=== PATIENT | female | born 1990 | race Caucasian/White ===

== ENCOUNTER 2017-03-30 16:12 | Inpatient (IN) | payer OTHER ==
[2017-03-30 18:44] LABS: ADD MAN DIFF? NO
[2017-03-30 18:47] LABS: WHITE BLOOD COUNT 8.8 10^3/ul (4.8-10.8)
[2017-03-30 18:47] LABS: BASOPHILS % 0.3 % (0.0-2.0); EOSINOPHILS # 0.3 10^3/ul (0.0-0.5); HEMATOCRIT 39.4 % (37.0-47.0); HEMOGLOBIN 12.3 g/dl (12.0-16.0); LYMPHOCYTES # 2.7 10^3/ul (0.8-2.9); LYMPHOCYTES % 30.2 % (15.0-51.0); MEAN CORPUSCULAR HEMOGLOBIN 24.8 pg (29.0-33.0); MEAN CORPUSCULAR HGB CONC 31.2 g/dl (32.0-37.0); MEAN CORPUSCULAR VOLUME 79.6 fl (82.0-101.0); MEAN PLATELET VOLUME 10.2 fl (7.4-10.4); MONOCYTE # 0.9 10^3/ul (0.3-0.9); MONOCYTES % 10.2 % (0.0-11.0); NEUTROPHIL # 4.9 10^3/ul (1.6-7.5); PLATELET COUNT 288 10^3/UL (140-415); RED BLOOD COUNT 4.95 10^6/ul (4.20-5.40); RED CELL DISTRIBUTION WIDTH 19.8 % (11.5-14.5)
[2017-03-30 18:54] LABS: ADD UMIC YES; UR ASCORBIC ACID 20 mg/dL (NEGATIVE); UR BACTERIA FEW /HPF (NONE SEEN); UR BILIRUBIN (Dip) NEGATIVE (NEGATIVE); UR BLOOD (Dip) 3+ mg/dL (NEGATIVE); UR CLARITY SLIGHTLY CLOUDY (CLEAR); UR COLOR YELLOW (YELLOW); UR GLUCOSE (Dip) NEGATIVE (NEGATIVE); UR KETONES (Dip) NEGATIVE (NEGATIVE); UR LEUKOCYTE ESTERASE (Dip) 2+ Leu/ul (NEGATIVE); UR MUCUS FEW /HPF (NONE SEEN); UR NITRITE (Dip) NEGATIVE (NEGATIVE); UR RBC 57 /HPF (0-5); UR SPECIFIC GRAVITY (Dip) 1.025 (1.003-1.030); UR SQUAMOUS EPITHELIAL CELL FEW /HPF (FEW); UR TOTAL PROTEIN (Dip) NEGATIVE (NEGATIVE); UR UROBILINOGEN (Dip) NEGATIVE (NEGATIVE); UR WBC 18 /HPF (0-5)
[2017-03-30 19:05] LABS: ALANINE AMINOTRANSFERASE 57 IU/L (13-69); ALBUMIN 4.3 g/dl (3.3-4.9); ALBUMIN/GLOBULIN RATIO 1.13; ALKALINE PHOSPHATASE 93 IU/L (42-121); ANION GAP 14 (8-16); ASPARTATE AMINO TRANSFERASE 39 IU/L (15-46); BLOOD UREA NITROGEN 11 mg/dl (7-20); CALCIUM 9.4 mg/dl (8.4-10.2); CARBON DIOXIDE 25 mmol/L (21-31); CHLORIDE 105 mmol/L (97-110); CREATININE 0.71 mg/dl (0.44-1.00); GLUCOSE 94 mg/dl (70-220); POTASSIUM 3.6 mmol/L (3.5-5.1); SODIUM 140 mmol/L (135-144); TOTAL PROTEIN 8.1 g/dl (6.1-8.1)
[2017-03-30] MEDS: SOD CHLORIDE 0.9% 1,000 ML IV (20:14)
[2017-03-30] MEDS: CEFTRIAXONE 1 GM/50 ML (PMX) 50 ML IVPB (20:21)
[2017-03-30 20:23] LABS: INR 0.92; PROTIME 12.4 Sec (11.9-14.9)
[2017-03-30] MEDS ORDERED: FENTAnyl 50 MCG/ML VIAL (22:51)
[2017-03-30] MEDS ORDERED: ONDANSETRON 4 MG INJ IV (23:00)
[2017-03-30] MEDS ORDERED: OXYCODONE/ACETAMINOPHEN (5/325) TAB PO (23:00)
[2017-03-30] MEDS: CEFAZOLIN 2 GM/50 ML (PMX) 50 ML IVPB (23:05)
[2017-03-30] MEDS ORDERED: SUCCINYLCHOLINE CHLORIDE 100 MG/5 ML SYG IV (23:08)
[2017-03-30] MEDS ORDERED: LIDOCAINE 2% (SDV) 5 ML INJ (23:08)
[2017-03-30] MEDS ORDERED: PROPOFOL 20 ML (23:08)
[2017-03-30] MEDS ORDERED: CEFAZOLIN 1 GM INJ (23:09)
[2017-03-30] MEDS ORDERED: SUGAMMADEX SODIUM 200 MG/2 ML VIAL IV (23:09)
[2017-03-30] MEDS ORDERED: ROCURONIUM 50 MG INJ (23:09)
[2017-03-30] MEDS ORDERED: FENTAnyl 50 MCG/ML VIAL IV (23:30)
[2017-03-30] MEDS ORDERED: METOCLOPRAMIDE 10 MG INJ IV (23:30)
[2017-03-30] MEDS ORDERED: HYDROmorphONE (0.2 MG/ML) 10ML SYG IV ×2 (23:30)
[2017-03-31] MEDS ORDERED: ROPIVACAINE 0.5 % 30 ML VIAL (00:02)
[2017-03-31] MEDS: ONDANSETRON 4 MG INJ IV (00:46)
[2017-03-31] MEDS: MEPERIDINE 25 MG INJ IV (00:46)
[2017-03-31] MEDS: DIPHENHYDRAMINE 50 MG INJ IV (00:47)
[2017-03-31] MEDS: HYDROmorphONE (0.2 MG/ML) 10ML SYG IV ×3 (00:47→01:40)
[2017-03-31] MEDS: FENTAnyl 50 MCG/ML VIAL IV ×2 (01:29→01:41)
[2017-03-31] MEDS: morphine 2 MG INJ IV ×3 (04:08→14:20)
[2017-03-31] MEDS: CEFAZOLIN 2 GM/50 ML (PMX) 50 ML IVPB ×2 (06:10→14:23)
[2017-03-31 06:30] LABS: ADD MAN DIFF? NO
[2017-03-31 06:43] LABS: BASOPHILS % 0.3 % (0.0-2.0); EOSINOPHILS % 0.2 % (0.0-7.0); HEMATOCRIT 31.8 % (37.0-47.0); HEMOGLOBIN 10.1 g/dl (12.0-16.0); LYMPHOCYTES # 1.8 10^3/ul (0.8-2.9); LYMPHOCYTES % 18.7 % (15.0-51.0); MEAN CORPUSCULAR HEMOGLOBIN 25.1 pg (29.0-33.0); MEAN CORPUSCULAR HGB CONC 31.8 g/dl (32.0-37.0); MEAN CORPUSCULAR VOLUME 78.9 fl (82.0-101.0); MEAN PLATELET VOLUME 10.3 fl (7.4-10.4); MONOCYTE # 0.7 10^3/ul (0.3-0.9); MONOCYTES % 7.3 % (0.0-11.0); NEUTROPHIL # 6.9 10^3/ul (1.6-7.5); NEUTROPHILS % 73.1 % (39.0-77.0); PLATELET COUNT 245 10^3/UL (140-415); RED BLOOD COUNT 4.03 10^6/ul (4.20-5.40); RED CELL DISTRIBUTION WIDTH 19.9 % (11.5-14.5)
[2017-03-31 06:43] LABS: WHITE BLOOD COUNT 9.4 10^3/ul (4.8-10.8)
[2017-03-31 07:00] LABS: ALANINE AMINOTRANSFERASE 52 IU/L (13-69); ALBUMIN 3.3 g/dl (3.3-4.9); ALKALINE PHOSPHATASE 72 IU/L (42-121); ANION GAP 13 (8-16); ASPARTATE AMINO TRANSFERASE 29 IU/L (15-46); BILIRUBIN,INDIRECT 0.2 mg/dl (0-1.1); BILIRUBIN,TOTAL 0.2 mg/dl (0.2-1.3); BLOOD UREA NITROGEN 9 mg/dl (7-20); CALCIUM 7.9 mg/dl (8.4-10.2); CARBON DIOXIDE 24 mmol/L (21-31); CHLORIDE 107 mmol/L (97-110); CREATININE 0.71 mg/dl (0.44-1.00); GLUCOSE 101 mg/dl (70-220); SODIUM 140 mmol/L (135-144); TOTAL PROTEIN 6.3 g/dl (6.1-8.1)
== END 2017-03-31 15:30 | disposition home or self-care (01) | DRG 777 ==
LOC: SDS 03-31 01:50 → MS2 03-31 01:50 → FTE 16:12 → SDS 22:21
PROC: 0UT64ZZ Resection of Left Fallopian Tube, Percutaneous Endoscopic Approach (ICD-10-PCS; principal; 2017-03-30 22:47)
PROC: 10T24ZZ Resection of Products of Conception, Ectopic, Percutaneous Endoscopic Approach (ICD-10-PCS; 2017-03-30 22:47)
DX: O00.102 Left tubal pregnancy without intrauterine pregnancy (principal); Z90.79 Acquired absence of other genital organ(s)
CPT/HCPCS: 36415; 76801; 76817; 80053; 81001; 84702; 85025; 85610; 85730; 86900; 86901; 87086; 88302; 96374; 99285-25